=== PATIENT | male | born 1970 | race Caucasian/White ===

== ENCOUNTER 2024-01-26 09:44 | Emergency (ER) | payer BC, OTHER, SELFPAY ==
[2024-01-26 09:47] VITALS: BP 124/83; PULSE 63; RESP 16; TEMP 36.2; O2SAT 98
--- NOTE | 2024-01-26 09:59 | W.ED.GENAD ---
Discharge Plan Disposition Patient Disposition: Home Condition: Stable Discharge Details Clinical Impression: Abrasion of right hand Primary Care Provider: Marcela,Local ED Provider: Raad Luz Home Meds and New Rx's Prescriptions: No Action No Known Home Meds Discharge Instructions Instructions: Abrasions ED, Minor Contusion ED Additional Instructions: You were seen in the emergency department for the contusion/abrasion of the right hand, we are outside the window to suture, you assure me that your tetanus is up-to-date. The bleeding is controlled at this time, your x-ray is negative for fracture. We are going to give you some extra supplies to help manage your hand, please continue to elevate. Please use therapeutic dosing of Tylenol (acetamenophen) & Advil (ibuprofen) in an alternating fashion as follows: Take 1000mg of Tylenol every 6 hours without missing doses- that is 4 times per day. Intermediate in between the Tylenol dosings, take 400-600mg of Advil also on a 6 hour schedule, that is also 4 times per day. The daily maximum dosing of Tylenol is 4000mg, and the daily maximum dosing of Advil is 2400mg. This is safe to do for weeks. Please note that some common cold medications & prescription pain medications may contain acetamenophen and you need to read OTC drug labels and factor that in to maximum daily dosings. Please return for any worsening of bleeding despite adequate bandaging with pressure and elevation, any signs of neurovascular compromise distal to the injury. Discharge Data Discharge Date/Time-TO BE ENTERED AT DEPARTURE: 01/26/24 10:46 HPI General Date/Time Provider Initiated Documentation: 01/26/24 09:54. HPI Narrative: 53 year-old male presents to ED today by POV/ambulating with a chief complaint of R-hand injury yesterday. 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 Severity is described as mild. Palliating factors include elevation and bandage with relief. Provoking factors include nothing specific. Events leading up to the incident/Associated Symptoms: Patient assured that his Tdap is UTD in the last two years, PCP is [id number]. Patient not anticoagulated. Related Data Home Medications ?Medication ?Instructions ?Recorded ?Confirmed Unknown [No Known Home Meds] 01/26/24 01/26/24 General Stated Complaint: Orthopedic POLLY: 4 Review of Systems All systems reviewed & are unremarkable except as noted in HPI and below Exam Narrative Exam Narrative: GENERAL APPEARANCE: Well-nourished, non-toxic, awake and alert, atraumatic, no acute distress. SKIN: Warm, pink, dry, 2 small 0.2cm abrasions to the dorsal right hand, no ecchymosis, no crepitus, brisk capillary refill in all fingers, teletray operator strength 5/5, no anatomical snuffbox tenderness, right radial pulse 2+ HEAD: Normocephalic, atraumatic, normal hair distribution for gender/age. EYES: Normal conjunctiva, no exudates on lids/lashes. ENT: Nares patent, no circumoral cyanosis, no facial swelling NECK: Supple, trachea midline, painless cervical ROM. LUNGS/CHEST: Non-labored respirations, normal A/P diameter, symmetrical expansion, no chest wall deformity HEART (CV/PV): No peripheral edema, no JVD. ABDOMEN: Soft, non-distended, no guarding. MSK: Normal ROM, no swelling/deformity to bilateral UEs or LEs, moving all extremities without weakness, no cyanosis, spine midline without tenderness, normal curvature. NEURO: Mental Status AAOx4 - alert to person, place, time, events No facial droop, no forehead involvement. Motor: No focal weakness - strength 5/5 in bilateral UEs and LEs, proximal and distal, symmetric. Sensory: sensation intact to light touch globally. Gait normal: patient ambulated without ataxia into ED room. PSYCH: euthymic, cooperative, pleasant, appropriate speech Course Vital Signs Vital signs: Vital Signs Temperature 36.2 C L 01/26/24 09:47 Pulse 63 01/26/24 09:47 Respiratory Rate 16 01/26/24 09:47 Blood Pressure 124/83 01/26/24 09:47 Pulse Oximetry 98 01/26/24 09:47 Temperature 36.2 C L 01/26/24 09:47 Temperature Source Temporal Artery Scan 01/26/24 09:47 Pulse 63 01/26/24 09:47 Respiratory Rate 16 09/20/24 09:47 Respiratory Effort Normal, Non-Labored 01/26/24 09:55 Blood Pressure 124/83 01/26/24 09:47 Blood Pressure Position Sitting 01/26/24 09:47 Pulse Oximetry 98 01/26/24 09:47 Oxygen Delivery Method Room Air 01/26/24 09:47 Oxygen Flow Rate 0 01/26/24 09:47 Pain Level 0 01/26/24 09:47 Medical Decision Making This dictation utilizes [id number] dictation software and may contain unedited grammatical errors. 53 year-old male presents to ED today by POV/ambulating with a chief complaint of R-hand injury yesterday. 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 Severity is described as mild. Palliating factors include elevation and bandage with relief. Provoking factors include nothing specific. Events leading up to the incident/Associated Symptoms: Patient assured that his Tdap is UTD in the last two years, PCP is [id number]. Patients' medical history: Negative, otherwise healthy. 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 Pertinent exam findings / vital signs include 2 small 0.2cm abrasions to the dorsal right hand, no ecchymosis, no crepitus, brisk capillary refill in all fingers, teletray operator strength 5/5, no anatomical snuffbox tenderness, right radial pulse 2+. Differential / pathologies of concern include fracture, abrasion/laceration-outside window for suture repair. Diagnostic studies of: -XR R hand- no acute fracture. Interventions of: -simple bandages. ED Course/Assessment/Plan: 53-year-old male resolved steel toe on his right hand yesterday, he aggressively cleaned the wound multiple times since then, had some persistent bleeding but elevated throughout the night and it did resolve, he is outside window for suture repair and there is no fracture on x-ray, I did provide simple bandages and counseled the patient on strict return criteria for any signs of infection. Findings not consistent with fracture, NV compromise, suturable wound. Disposition of Abrasion of Right Hand. Patient verbalized understanding of the plan and return to ED criteria and engaged in shared decision making. Medical Records Medical records reviewed: Yes I reviewed the patient's medical records. Imaging Data Radiologic Study: Attestation: I personally reviewed and interpreted this imaging study as follows: Imaging: X-Ray Radiologist's impression: EXAM: XR HAND RT COMPLETE CLINICAL HISTORY: R hand pain - dropped steel on hand yesterday. TECHNIQUE: 2D digital imaging was performed. Three views. COMPARISON: No exams were available for comparison FINDINGS: BONES: No acute fracture is present. Chronic appearing deformity of the navicular. Intercarpal degenerative changes. Adjacent chronic bony fragments. No bony destructive lesion is seen. JOINTS: No dislocation present. SOFT TISSUE: Normal. IMPRESSION: No acute abnormality Quality:SDOH Health Related Social Needs: No Data to Display PFSH All Active Problems (Updated 01/26/24 @ 10:32 by ALAN Flores) Abrasion of right hand (Acute) Social History Smoking/Tobacco Use Status: Never Smoking risk assessment performed?: Yes Alcohol Intake: current Alcohol Intake frequency: 0-2 drinks per day Alcohol type: beer Drug use: Socially Substance use type: marijuana Housing: house Do you feel safe at home: Yes Do you feel safe in your relationship?: Yes PAWSS Have you Been Recently Intoxicated or Drunk Within the Last 30 days?: No Have you Ever Experienced Previous Episodes of Alcohol Withdrawal?: No Have you ever Experienced Withdrawal Seizures?: No Have you ever Experienced Delirium Tremens(DT)s?: No Have you ever undergone Alcohol Rehabilitation Treatment (i.e, inpt ot outpatient treatment programs)?: No Have you ever Experienced Blackouts?: No Have you ever Combined Alcohol with other Downers within the last 90 days?: No Have you ever Combined Alcohol with any other Substance of Abuse during the last 90 days?: No Positive Blood Alcohol level on Presentation? [PCS.BAL]: No Evidence of Increased Autonomic Activity (i.e. HR>120, tremor, sweating, agitation, nausea)?: No Result: 0
--- NOTE | 2024-01-26 10:00 | DI.RAD_ITS ---
Exam(s) XR HAND RT COMPLETE EXAM: XR HAND RT COMPLETE CLINICAL HISTORY: R hand pain - dropped steel on hand yesterday. TECHNIQUE: 2D digital imaging was performed. Three views. COMPARISON: No exams were available for comparison FINDINGS: BONES: No acute fracture is present. Chronic appearing deformity of the navicular. Intercarpal dege nerative changes. Adjacent chronic bony fragments. No bony destructive lesion is seen. JOINTS: No dislocation present. SOFT TISSUE: Normal. IMPRESSION: No acute abnormality. DATA REPOSITORY: RADIATION DOSE DELIVERED:
== END 2024-01-26 10:46 | disposition home or self-care (01) ==
PROVIDERS: Emergency Provider Physician Assistant
DX: S60.511A Abrasion of right hand, initial encounter (principal); W20.8XXA Other cause of strike by thrown, projected or falling object, initial encounter; Y93.H3 Activity, building and construction
CPT/HCPCS: 99283; 73130